=== PATIENT | female | born 1950 | race Caucasian/White ===

== ENCOUNTER 2018-02-11 17:20 | Emergency (ER) | payer OTHER ==
[~2018-02-11] VITALS: Ht 177.8 cm; Wt 111.1 kg
[~2018-02-11 17:20] MED LIST: ALBIPROI INH; ALBU.083IS IH; ALBU.083IS INH; ALBU8HFA2 INH; ALBU90I INH; ALBU90OI INH; ALBU90OI6 INH; ALBUIS IH; AZIT250 PO; BUDE6HFA INH; CEPH500 PO; CLOT1TC TOP; CYCL10 PO; ENOX40I SC; FLUSAL1005 IH; HYDACE10B PO; HYDACE5 PO; HYDCHL12.5 PO; IPRAIS NEB; Klor-Con 1010 MEQ PO; LISI5 PO; LORA10ER PO; METF500 PO; METHI10 PO; MONT10T PO; MULVITA PO; NAPR500 PO; Norco 5-325 Ta1 EACH PO; OMEP40CA12 PO; OXYACE5T PO; OXYB5 PO; PANT40 PO; PRED20 PO; PROVASTATIN PO; Prilosec Otc20 MG PO; Q VAR; RANI150 PO; RXHYD5325 PO; SULTRIDS PO; THEO300ERA PO; THEO300ERC PO; TIOT18 IH; TOBR.3OPSO OP; TOCO400 PO; TRAM50 PO; VITAMIN D3 PO; Ventolin Soln3 ML INH
== END 2018-02-11 18:25 | disposition home or self-care (01) ==
LOC: ER 17:20
DX: S51.011A Laceration without foreign body of right elbow, initial encounter (principal); W18.09XA Striking against other object with subsequent fall, initial encounter; Z88.0 Allergy status to penicillin; Z91.048 Other nonmedicinal substance allergy status; Z79.899 Other long term (current) drug therapy; J44.9 Chronic obstructive pulmonary disease, unspecified; E11.9 Type 2 diabetes mellitus without complications
CPT/HCPCS: 90471; 90714; 99283-25

== ENCOUNTER 2019-07-06 08:02 | Day surgery (SDC) | payer OTHER ==
[~2019-07-06] VITALS: Ht 177.8 cm; Wt 123.5 kg
[2019-07-06] MEDS ORDERED: NAPR220 (08:47)
--- NOTE | 2019-07-06 08:52 | NUR ---
07/06/19 0852 Lucero Chambers FOR BACK PAIN
--- NOTE | 2019-07-06 10:10 | NUR ---
07/06/19 1010 Lucero Chambers PT. RIGHT AFTER INJECTION C/O PROCEDURE BEING PAINFUL RATING PAIN A "10". AFTER LAYING ON SIDE FOR 10MIN PER DR. GRAJEDA VERBALIZATION, PT. SAT UP ON SIDE OF BED & PAIN WAS IMPROVED TO A "6". PT. DENIED ANY NUMBNESS OR TINGLING POST PROCEDURE. UPON WALKING OUT TO CAR PT. VERBALIZED HER HIP DIDN'T HURT ANYMORE. PT. STEADY ON FEET.
== END 2019-07-06 09:35 | disposition home or self-care (01) ==
LOC: ORSCSDS 08:02
PROVIDERS: Anesthesiology
PROC: 3E0R33Z Introduction of Anti-inflammatory into Spinal Canal, Percutaneous Approach (ICD-10-PCS; principal; 2019-07-06 09:15)
DX: M51.16 Intervertebral disc disorders with radiculopathy, lumbar region (principal); G47.33 Obstructive sleep apnea (adult) (pediatric); J45.909 Unspecified asthma, uncomplicated; E05.90 Thyrotoxicosis, unspecified without thyrotoxic crisis or storm; E66.01 Morbid (severe) obesity due to excess calories; Z68.39 Body mass index [BMI] 39.0-39.9, adult; Z79.899 Other long term (current) drug therapy
CPT/HCPCS: J0330; J1040

== ENCOUNTER → 2020-03-10 | Outpatient (CLI) | payer OTHER ==
[~2020-03-10] MED LIST changes: +NAPR220
== END | disposition home or self-care (01) ==
LOC: LAB SHORT 18:16 → LAB 18:16
DX: N39.0 Urinary tract infection, site not specified (principal)
CPT/HCPCS: 87077; 87086; 87186

== ENCOUNTER → 2020-05-15 | Outpatient (CLI) | payer OTHER ==
[~2020-05-15] MED LIST changes: +ASPI325 PO; +Hair, Skin & N1 EACH PO; -LISI5 PO; +Prinivil10 MG PO; +SYMBICORT 16010.2 GM INH; +TIOT18 INH
== END | disposition home or self-care (01) ==
LOC: LAB 13:31 → LAB SHORT 13:31
DX: N39.0 Urinary tract infection, site not specified (principal)
CPT/HCPCS: 87077; 87086; 87186

== ENCOUNTER → 2020-05-20 | Outpatient (CLI) | payer OTHER ==
[~2020-05-20] MED LIST changes: -ASPI325 PO; -Hair, Skin & N1 EACH PO; +LISI5 PO; -Prinivil10 MG PO; -SYMBICORT 16010.2 GM INH; -TIOT18 INH
== END ==
LOC: LAB SHORT 15:20
DX: R30.9 Painful micturition, unspecified (principal)
CPT/HCPCS: 87077; 87086; 87186

== ENCOUNTER 2020-09-08 10:41 | Observation (INO) | payer OTHER ==
[~2020-09-08] VITALS: Ht 175.3 cm; Wt 124.0 kg
[~2020-09-08 10:41] MED LIST changes: -LISI5 PO; +Prinivil10 MG PO; +TIOT18 INH
[2020-09-08 11:29] LABS: BASOPHILS ABSOLUTE AUTO 0.07 K/mm3 (0.00-0.23); BASOPHILS PERCENT AUTO 1 % (0-2); EOSINOPHILS ABSOLUTE AUTO 0.33 K/mm3 (0.00-0.68); EOSINOPHILS PERCENT AUTO 3 % (0-6); Hemoglobin 13.4 g/dL (11.5-16.0); IMMATURE GRAN ABSOLUTE AUTO 0.26 K/mm3 (0.00-0.10); IMMATURE GRAN PERCENT AUTO 2 % (0-1); LYMPHOCYTES ABSOLUTE AUTO 1.68 K/mm3 (0.84-5.20); LYMPHOCYTES PERCENT AUTO 14 % (21-46); MONOCYTES ABSOLUTE AUTO 0.85 K/mm3 (0.16-1.47); MONOCYTES PERCENT AUTO 7 % (4-13); Mean Corpuscular HGB 30.4 pg (26.0-34.0); Mean Corpuscular HGB Conc 32.7 g/dL (31.5-36.5); Mean Corpuscular Volume 93 fL (80-100); Mean Platelet Volume 9.4 fL (9.1-12.4); NEUTROPHILS ABSOLUTE AUTO 8.62 K/mm3 (1.96-9.15); NEUTROPHILS PERCENT AUTO 73 % (41-73); Platelet Count 274 K/mm3 (150-400); RDW Coefficient Variation 14.1 % (11.7-14.2); RDW Standard Deviation 48.7 fL (35.1-46.3); Red Blood Cell Count 4.41 M/mm3 (3.80-5.20); White Blood Cell Count 11.81 K/mm3 (4.00-11.30)
[2020-09-08 11:53] LABS: Alanine Aminotransfer (ALT/SGP 26 U/L (12-78); Albumin, Blood 3.2 g/dL (3.4-5.0); Albumin/Globulin Ratio 0.8 (0.8-1.8); Alk Phos 142 U/L (50-136); Anion Gap 5 mmol/L (6-16); Aspartate Aminotrans (AST/SGOT 17 U/L (12-37); Bilirubin, Total 0.4 mg/dL (0.1-1.0); Blood Urea Nitrogen 16 mg/dL (8-24); Bun/Creatinine Ratio 27.4 (12.0-20.0); CO2, Blood 27 mmol/L (21-32); Calcium, Blood 9.4 mg/dL (8.5-10.1); Chloride, Blood 108 mmol/L (98-108); Creatinine, Blood 0.58 mg/dL (0.40-1.00); Globulin, Blood 4.2 g/dL (2.2-4.0); Glomerular Filtration Rate >60 (60-); Glucose, Blood 110 mg/dL (70-99); Potassium, Blood 3.9 mmol/L (3.5-5.5); Sodium, Blood 140 mmol/L (136-145); Total Protein, Blood 7.4 g/dL (6.4-8.2); Troponin I <0.015 ng/mL (0.000-0.040)
[2020-09-08] MEDS ORDERED: ASPI325 PO (13:21)
[2020-09-08] MEDS ORDERED: SYMBICORT 16010.2 GM INH (13:39)
[2020-09-08] MEDS ORDERED: Hair, Skin & N1 EACH PO (13:49)
--- NOTE | 2020-09-08 15:29 | NUR ---
PT ARRIVED TO THE MEDICAL FLOOR FROM THE ER VIA WHEELCHAIR A/OX3, PT DENIED ANY C/P ON ARRIVAL TO THE ROOM. THE PT IS UP IND. THE PT WAS ORIENTED TO THE ROOM LAYOUT AND CALL SYSTEM. CALL LIGHT IN REACH
--- NOTE | 2020-09-08 17:44 | NUR ---
PT IS A/OX4, PLEASANT AND COOPERATIVE, THE PT IS UP WITH MINIMAL ASSIST. THE PT DENIES ANY C/P OR ANY OTHER PAIN AT THIS TIME. THE PT DENIES N/V OR SOB. THE RESTING PORTION OF A STRESS TEST WAS STARTED TODAY. AN ECHO CARDIOGRAM WAS DONE TODAY. TELE IS APPLIED, WILL CONTINUE TO MONITOR AND ASSESS FOR CHANGES
--- NOTE | 2020-09-08 19:49 | NUR ---
Echocardiogram completed.
--- NOTE | 2020-09-09 06:33 | NUR ---
SHIFT SUMMARY PT IS A 69 Y/O FEMALE, ADMITTED FOR [facility]. SHE IS A&O X 4, SBA IN THE ROOM. NO C/O CHEST PAIN, NAUSEA OR SOB, THOUGH PT DID REPORT CHRONIC BACK PAIN. TELE SHOWED NSR IN THE 70S. VITAL SIGNS STABLE. PT HAS BEEN NPO SINCE MIDNIGHT IN PREP FOR 2ND HALF OF STRESS TEST TODAY. NO ACUTE CHANGES IN PT CONDITION NOTED DURING THE NIGHT. WILL CONTINUE TO MONITOR AND TREAT PER EMAR UNTIL HAND OFF TO DAY SHIFT RN.
[2020-09-09] MEDS ORDERED: ASPI81CH PO (11:38)
--- NOTE | 2020-09-09 12:48 | NUR ---
DISCHARGE ORDERS REVIEWED WITH PATIENT. ALL QUESTIONS ANSWERED. IV AND TELE REMOVED. PATIENT IS IN ROOM GETTING READY TO DISCHARGE HOME.
--- NOTE | 2020-09-09 13:31 | NUR ---
PATIENT DISCHARGED HOME AT 1305 WITH INFORMATION MANAGEMENT SPECIALIST ESCORT OUT OF HOSPITAL.
== END 2020-09-09 13:08 | disposition home or self-care (01) ==
LOC: ER 10:41 → MEDS 10:42
PROVIDERS: Physician Assistant; ADMIT Hospitalist
DX: R07.89 Other chest pain (principal); R68.84 Jaw pain; F43.10 Post-traumatic stress disorder, unspecified; J44.9 Chronic obstructive pulmonary disease, unspecified; E11.51 Type 2 diabetes mellitus with diabetic peripheral angiopathy without gangrene; I10 Essential (primary) hypertension; G47.33 Obstructive sleep apnea (adult) (pediatric); K75.81 Nonalcoholic steatohepatitis (NASH); E03.9 Hypothyroidism, unspecified; K21.9 Gastro-esophageal reflux disease without esophagitis; K58.9 Irritable bowel syndrome, unspecified; N32.81 Overactive bladder; M85.80 Other specified disorders of bone density and structure, unspecified site; I45.10 Unspecified right bundle-branch block; K44.9 Diaphragmatic hernia without obstruction or gangrene; Z88.0 Allergy status to penicillin; Z91.048 Other nonmedicinal substance allergy status; Z96.653 Presence of artificial knee joint, bilateral
CPT/HCPCS: 36415; 71046; 78452; 80053; 82947; 83880; 84484; 85025; 93005; 93010; 93017; 93306; 94640; 94664; 94760; 96372; 99285-25; A9270; A9500; G0378; J0706; J1650; J2785

== ENCOUNTER → 2020-10-08 | Outpatient (CLI) | payer OTHER ==
[~2020-10-08] MED LIST changes: +ASPI325 PO; +ASPI81CH PO; +Hair, Skin & N1 EACH PO; +SYMBICORT 16010.2 GM INH
== END | disposition home or self-care (01) ==
LOC: LAB SHORT 19:47 → LAB 19:47
DX: N39.0 Urinary tract infection, site not specified (principal)
CPT/HCPCS: 87077; 87086; 87186

== ENCOUNTER → 2020-11-04 | Outpatient (CLI) | payer OTHER | END | disposition home or self-care (01) | LOC: LAB SHORT 10:15 → LAB 10:15 | DX: R30.9 Painful micturition, unspecified (principal) | CPT/HCPCS: 87086 ==

== ENCOUNTER 2021-05-27 04:14 | Emergency (ER) | payer MEDICARE, OTHER ==
[~2021-05-27] VITALS: Ht 175.3 cm; Wt 120.2 kg
[~2021-05-27 04:14] MED LIST changes: +Prednisone20 MG PO
[2021-05-30] MEDS ORDERED: CEPH500 PO (18:22)
== END 2021-05-27 06:40 | disposition home or self-care (01) ==
LOC: ER 04:14
DX: R11.2 Nausea with vomiting, unspecified (principal); J44.9 Chronic obstructive pulmonary disease, unspecified; E11.9 Type 2 diabetes mellitus without complications; E03.9 Hypothyroidism, unspecified; K21.9 Gastro-esophageal reflux disease without esophagitis; I10 Essential (primary) hypertension; Z88.0 Allergy status to penicillin; Z91.048 Other nonmedicinal substance allergy status; Z79.899 Other long term (current) drug therapy; Z79.82 Long term (current) use of aspirin
CPT/HCPCS: 99283; A9270

== ENCOUNTER 2021-09-13 20:46 | Emergency (ER) | payer MEDICARE, OTHER ==
[~2021-09-13] VITALS: Ht 175.3 cm; Wt 106.6 kg
== END 2021-09-13 21:24 | disposition home or self-care (01) ==
LOC: ER 20:46
DX: H11.32 Conjunctival hemorrhage, left eye (principal); J44.9 Chronic obstructive pulmonary disease, unspecified; E11.9 Type 2 diabetes mellitus without complications; Z88.0 Allergy status to penicillin; Z91.048 Other nonmedicinal substance allergy status; Z79.899 Other long term (current) drug therapy
CPT/HCPCS: 99282

== ENCOUNTER → 2021-10-05 | Outpatient (CLI) | payer MEDICARE, OTHER ==
[2021-10-06 09:48] LABS: Stool Occult Bld Immuno 1 Negative (NEGATIVE)
== END | disposition home or self-care (01) ==
LOC: LAB SHORT 14:00 → LAB 14:00
PROVIDERS: Family Medicine
DX: Z12.11 Encounter for screening for malignant neoplasm of colon (principal)
CPT/HCPCS: G0328

== ENCOUNTER 2022-05-09 07:53 | Emergency (ER) | payer MEDICARE, OTHER ==
[~2022-05-09] VITALS: Ht 180.3 cm; Wt 113.4 kg
[2022-05-09 09:04] LABS: BASOPHILS ABSOLUTE AUTO 0.07 K/mm3 (0.00-0.23); BASOPHILS PERCENT AUTO 1 % (0-2); EOSINOPHILS PERCENT AUTO 2 % (0-6); Hematocrit 43.3 % (33.0-51.0); Hemoglobin 14.3 g/dL (11.5-16.0); IMMATURE GRAN ABSOLUTE AUTO 0.21 K/mm3 (0.00-0.10); IMMATURE GRAN PERCENT AUTO 2 % (0-1); LYMPHOCYTES ABSOLUTE AUTO 1.87 K/mm3 (0.84-5.20); LYMPHOCYTES PERCENT AUTO 18 % (21-46); MONOCYTES ABSOLUTE AUTO 0.92 K/mm3 (0.16-1.47); MONOCYTES PERCENT AUTO 9 % (4-13); Mean Corpuscular HGB 31.4 pg (26.0-34.0); Mean Corpuscular Volume 95 fL (80-100); Mean Platelet Volume 9.6 fL (9.1-12.4); NEUTROPHILS ABSOLUTE AUTO 7.23 K/mm3 (1.96-9.15); NEUTROPHILS PERCENT AUTO 69 % (41-73); Platelet Count 223 K/mm3 (150-400); RDW Coefficient Variation 13.4 % (11.7-14.2); RDW Standard Deviation 47.6 fL (35.1-46.3); Red Blood Cell Count 4.55 M/mm3 (3.80-5.20)
[2022-05-09 09:23] LABS: Albumin, Blood 3.3 g/dL (3.4-5.0); Albumin/Globulin Ratio 0.8 (0.8-1.8); Bilirubin, Total 0.8 mg/dL (0.1-1.0); Bun/Creatinine Ratio 32.7 (12.0-20.0); Calcium, Blood 9.1 mg/dL (8.5-10.1); Creatinine, Blood 0.61 mg/dL (0.40-1.00); Globulin, Blood 4.3 g/dL (2.2-4.0); Potassium, Blood 4.2 mmol/L (3.5-5.5); Total Protein, Blood 7.6 g/dL (6.4-8.2)
[2022-05-09 09:40] LABS: Influenza A, PCR NEGATIVE (NEGATIVE); Influenza B, PCR NEGATIVE (NEGATIVE); Resp Syncytial Virus, PCR NEGATIVE (NEGATIVE); SARS-Cov-2 (COVID-19) PCR, MMC NEGATIVE (NEGATIVE)
[2022-05-09 10:57] LABS: Source, Urine Clean Catch
[2022-05-09 11:12] LABS: Bilirubin, Urine Neg (Neg); Blood, Urine Neg (Neg); Glucose Qualitative, Urine Neg (Neg); Ketones, Urine Neg (Neg); Leukocyte Esterase, Urine Neg (Neg); Nitrite, Urine Pos (Neg); Protein, Urine Neg (Neg); Specific Gravity, Urine 1.015 (1.003-1.022); Urobilinogen, Urine NORM (Normal)
[2022-05-09 11:27] LABS: Appearance, Urine Cloudy (Clear); Bacteria Many /hpf; Color, Urine Yellow (P-Yellow); Red Blood Cells, Urine 0-2 /hpf (0-2); Squamous Epithelial Cells Few /hpf (Few); White Blood Cells, Urine 0-2 /hpf (0-5)
[2022-05-09] MEDS ORDERED: ONDA4ODT MM (11:35)
[2022-05-09] MEDS ORDERED: Bactrim Ds Tab1 EACH PO (11:35)
== END 2022-05-09 11:42 | disposition home or self-care (01) ==
LOC: ER 07:53
PROVIDERS: Physician Assistant
DX: N39.0 Urinary tract infection, site not specified (principal); J06.9 Acute upper respiratory infection, unspecified; J44.9 Chronic obstructive pulmonary disease, unspecified; E11.51 Type 2 diabetes mellitus with diabetic peripheral angiopathy without gangrene; K21.9 Gastro-esophageal reflux disease without esophagitis; I10 Essential (primary) hypertension; E05.00 Thyrotoxicosis with diffuse goiter without thyrotoxic crisis or storm; Z20.822 Contact with and (suspected) exposure to COVID-19; Z88.0 Allergy status to penicillin; Z91.048 Other nonmedicinal substance allergy status; Z88.8 Allergy status to other drugs, medicaments and biological substances; Z79.899 Other long term (current) drug therapy; Z79.82 Long term (current) use of aspirin
CPT/HCPCS: 0241U; 36415; 71046; 80053; 81001; 83735; 85025; 87077; 87086; 87186; 94640; 94664; J2405; J7030

== ENCOUNTER 2022-06-23 09:34 | Emergency (ER) | payer OTHER ==
[~2022-06-23] VITALS: Ht 177.8 cm; Wt 111.1 kg
[~2022-06-23 09:34] MED LIST changes: +Bactrim Ds Tab1 EACH PO; +ONDA4ODT MM
[2022-06-23 10:07] LABS: BASOPHILS ABSOLUTE AUTO 0.04 K/mm3 (0.00-0.23); BASOPHILS PERCENT AUTO 0 % (0-2); EOSINOPHILS ABSOLUTE AUTO 0.07 K/mm3 (0.00-0.68); EOSINOPHILS PERCENT AUTO 1 % (0-6); IMMATURE GRAN ABSOLUTE AUTO 0.21 K/mm3 (0.00-0.10); IMMATURE GRAN PERCENT AUTO 1 % (0-1); LYMPHOCYTES ABSOLUTE AUTO 1.21 K/mm3 (0.84-5.20); LYMPHOCYTES PERCENT AUTO 8 % (21-46); MONOCYTES ABSOLUTE AUTO 1.03 K/mm3 (0.16-1.47); MONOCYTES PERCENT AUTO 7 % (4-13); Mean Corpuscular HGB 31.3 pg (26.0-34.0); Mean Corpuscular HGB Conc 32.6 g/dL (31.5-36.5); Mean Corpuscular Volume 96 fL (80-100); Mean Platelet Volume 9.4 fL (9.1-12.4); NEUTROPHILS ABSOLUTE AUTO 12.22 K/mm3 (1.96-9.15); NEUTROPHILS PERCENT AUTO 83 % (41-73); Platelet Count 169 K/mm3 (150-400); RDW Coefficient Variation 14.2 % (11.7-14.2); RDW Standard Deviation 50.3 fL (35.1-46.3); Red Blood Cell Count 4.47 M/mm3 (3.80-5.20); White Blood Cell Count 14.78 K/mm3 (4.00-11.30)
[2022-06-23 10:19] LABS: Base Excess Venous -0.3 mmol/L; PCO2 Venous 54.1 mmHg (38-42); pH Blood Venous 7.29 (7.34-7.37)
[2022-06-23 10:27] LABS: Albumin, Blood 2.9 g/dL (3.4-5.0); Albumin/Globulin Ratio 0.7 (0.8-1.8); Bilirubin, Total 0.7 mg/dL (0.1-1.0); Calcium, Blood 8.7 mg/dL (8.5-10.1); Creatinine, Blood 0.65 mg/dL (0.40-1.00); Globulin, Blood 4.2 g/dL (2.2-4.0); Potassium, Blood 3.5 mmol/L (3.5-5.5); Total Protein, Blood 7.1 g/dL (6.4-8.2)
[2022-06-23 11:09] LABS: Influenza A, PCR NEGATIVE (NEGATIVE); Influenza B, PCR NEGATIVE (NEGATIVE); Resp Syncytial Virus, PCR NEGATIVE (NEGATIVE); SARS-Cov-2 (COVID-19) PCR, MMC NEGATIVE (NEGATIVE)
[2022-06-23] MEDS ORDERED: AZIT250 PO (12:19)
[2022-06-23] MEDS ORDERED: PRED20 PO (12:19)
[2022-06-23 12:36] VITALS: BP 112/79
== END 2022-06-23 12:38 | disposition home or self-care (01) ==
LOC: ER 09:34
PROVIDERS: Physician Assistant
DX: J44.1 Chronic obstructive pulmonary disease with (acute) exacerbation (principal); J18.9 Pneumonia, unspecified organism; E11.9 Type 2 diabetes mellitus without complications; I10 Essential (primary) hypertension; Z91.048 Other nonmedicinal substance allergy status; Z20.822 Contact with and (suspected) exposure to COVID-19; Z88.0 Allergy status to penicillin; Z79.82 Long term (current) use of aspirin; Z79.51 Long term (current) use of inhaled steroids; Z79.899 Other long term (current) drug therapy
CPT/HCPCS: 0241U; 71045; 80053; 82803; 83880; 84484; 85025; 93005; 93010; 94644; 94664; J2930

== ENCOUNTER 2022-06-27 20:10 | Inpatient (IN) | payer OTHER ==
[~2022-06-27] VITALS: Ht 175.3 cm; Wt 112.7 kg
[2022-06-27 21:00] LABS: Hematocrit 38.7 % (33.0-51.0); Hemoglobin 12.7 g/dL (11.5-16.0); Mean Corpuscular HGB 31.1 pg (26.0-34.0); Mean Corpuscular HGB Conc 32.8 g/dL (31.5-36.5); Mean Corpuscular Volume 95 fL (80-100); Mean Platelet Volume 9.6 fL (9.1-12.4); NRBC ABSOLUTE 0.04 K/mm3 (0.00-0.02); NRBC Auto 0.2 /100 WBC (0.0-0.2); Platelet Count 211 K/mm3 (150-400); RDW Coefficient Variation 14.2 % (11.7-14.2); RDW Standard Deviation 49.1 fL (35.1-46.3); Red Blood Cell Count 4.08 M/mm3 (3.80-5.20); White Blood Cell Count 22.47 K/mm3 (4.00-11.30)
[2022-06-27 21:18] LABS: Albumin, Blood 2.5 g/dL (3.4-5.0); Albumin/Globulin Ratio 0.6 (0.8-1.8); Bilirubin, Total 0.4 mg/dL (0.1-1.0); Bun/Creatinine Ratio 36.4 (12.0-20.0); Calcium, Blood 8.5 mg/dL (8.5-10.1); Creatinine, Blood 0.58 mg/dL (0.40-1.00); Potassium, Blood 3.9 mmol/L (3.5-5.5); Total Protein, Blood 6.5 g/dL (6.4-8.2)
[2022-06-27 21:21] LABS: BAND PERCENT MAN 1 % (0-8); BASOPHILS PERCENT MAN 0 % (0-2); EOSINOPHILS PERCENT MAN 0 % (0-6); LYMPHOCYTES ABSOLUTE MAN 1.34 K/mm3 (0.84-5.20); LYMPHOCYTES PERCENT MAN 6 % (21-46); METAMYELOCYTE ABSOLUTE MAN 0.44 K/mm3 (0.00-0.00); METAMYELOCYTE PERCENT MAN 2 % (0-0); MONOCYTES ABSOLUTE MAN 0.89 K/mm3 (0.16-1.47); MONOCYTES PERCENT MAN 4 % (4-13); MYELOCYTE ABSOLUTE MAN 1.57 K/mm3 (0.00-0.00); MYELOCYTE PERCENT MAN 7 % (0-0); SEG NEUTROPHILS PERCENT MAN 80 % (41-73); TOTAL CELLS COUNTED 100
[2022-06-28 00:55] VITALS: BP 143/74
[2022-06-28 01:35] LABS: International Normalized Ratio 1.04; Prothrombin Time Results 10.9 Sec (9.7-11.5)
[2022-06-28 01:36] LABS: PCO2 Venous 33.2 mmHg (38-42); pH Blood Venous 7.45 (7.34-7.37)
[2022-06-28 01:37] LABS: Bicarbonate Venous 24.2 mmol/L (24.0-30.0)
[2022-06-28 03:43] VITALS: BP 135/76
--- NOTE | 2022-06-28 05:14 | NUR ---
TRANSFER OF CARE NOTE/SHIFT SUMMARY RECEIVED REPORT FROM CUSTOMER SUPPLY COORDINATOR SHANI BUCK SHORTLY ARRIVED TO U ~0045 THIS AM. PT WAS ABLE TO TRANSFER FROM [facility] TO BED VIA SBA. PT IS AFEBRILE WELL A/Ox4 AND COOPERATIVE WITH CARE MAINTAINED SPO2 >90% ON 1L VIA NC. SOB WELL INCREASED RR NOTED WITH ABULATION, BUT QUICKLY RECOVERED. CARDIAC SOTOMAYOR, PT WAS IN SR-ST W/PVC'S 70-100'S WITH NO C/O CP OR PRESSURE. BP WAS STABLE IN THE 120-130'S. BS PRESENT WITH NOT ABD TENDERNSS REPORTED. BED IN LOWEST POSITION AND CALL LIGHT WITHIN REACH. LOUISA JOHANSEN UPON ARRIVAL TO PCU. SHIFT SUMMARY NO ACUTE CHANGES FROM TRANSFER OF CARE NOTE. PT REMAINS A/Ox4 AND COOPERATIVE WITH CARE PROVIDED BY MEMBERS OF STAFF. ABLE TO ANSWER QUESTIONS APPROPRIATELY AND MAKE HER NEEDS KNOWN. PT REMAIN A/Ox4 AND COOPERATIVE WITH CARE PROVIDED BY STAFF. SEE ABOVE NOTE FOR MORE DETAILS. NO NEW ORDERS AT THIS TIME, WILL REPORT TO ONCOMING RN. LOUISA JOHANSEN OF THIS NOTE.
[2022-06-28 07:32] VITALS: BP 128/80
[2022-06-28 09:37] LABS: Hematocrit 40.6 % (33.0-51.0); Hemoglobin 13.6 g/dL (11.5-16.0); Mean Corpuscular HGB 30.9 pg (26.0-34.0); Mean Corpuscular HGB Conc 33.5 g/dL (31.5-36.5); Mean Corpuscular Volume 92 fL (80-100); Mean Platelet Volume 9.2 fL (9.1-12.4); Platelet Count 239 K/mm3 (150-400); RDW Coefficient Variation 13.8 % (11.7-14.2); RDW Standard Deviation 47.5 fL (35.1-46.3); White Blood Cell Count 33.88 K/mm3 (4.00-11.30)
--- NOTE | 2022-06-28 09:59 | NUR ---
DR. GONZALES CAME TO BEDSIDE AND EVALUATED THE PT. SHE WAS CHANGED TO MED NO TELE, STARTED ON A CARDIAC DIET, AND THE PT WAS STARTED ON Q4 NYASTAIN SS Q4 FOR TRUSH. DR. GONZALES WANTS TO KEEP THE PAIENT FOR 1-2 MORE DAYS INPATIENT.
[2022-06-28 10:01] LABS: Albumin, Blood 2.7 g/dL (3.4-5.0); Albumin/Globulin Ratio 0.6 (0.8-1.8); Bilirubin, Total 0.4 mg/dL (0.1-1.0); Bun/Creatinine Ratio 32.4 (12.0-20.0); Creatinine, Blood 0.59 mg/dL (0.40-1.00); Globulin, Blood 4.5 g/dL (2.2-4.0); Potassium, Blood 3.5 mmol/L (3.5-5.5); Total Protein, Blood 7.2 g/dL (6.4-8.2)
[2022-06-28 10:07] LABS: BAND PERCENT MAN 4 % (0-8); BASOPHILS PERCENT MAN 0 % (0-2); EOSINOPHILS PERCENT MAN 0 % (0-6); LYMPHOCYTES ABSOLUTE MAN 0.33 K/mm3 (0.84-5.20); LYMPHOCYTES PERCENT MAN 1 % (21-46); METAMYELOCYTE ABSOLUTE MAN 0.33 K/mm3 (0.00-0.00); METAMYELOCYTE PERCENT MAN 1 % (0-0); MONOCYTES ABSOLUTE MAN 0.33 K/mm3 (0.16-1.47); MONOCYTES PERCENT MAN 1 % (4-13); NEUTROPHILS ABSOLUTE MAN 32.86 K/mm3 (1.96-9.15); SEG NEUTROPHILS PERCENT MAN 93 % (41-73); TOTAL CELLS COUNTED 100
[2022-06-28 10:14] LABS: Source, Urine Clean Catch
[2022-06-28 10:17] LABS: CPK Creatine Kinase 149 U/L (26-193)
[2022-06-28 10:18] LABS: Appearance, Urine Clear (Clear); Bilirubin, Urine Neg (Neg); Blood, Urine Neg (Neg); Color, Urine Yellow (P-Yellow); Glucose Qualitative, Urine 4+ (Neg); Ketones, Urine Neg (Neg); Leukocyte Esterase, Urine Neg (Neg); Nitrite, Urine Neg (Neg); Protein, Urine 2+ (Neg); Specific Gravity, Urine 1.015 (1.003-1.022); Urobilinogen, Urine NORM (Normal)
[2022-06-28 10:40] LABS: Bacteria Not Seen /hpf; Red Blood Cells, Urine Not Seen /hpf (0-2); Squamous Epithelial Cells Rare /hpf (Few); White Blood Cells, Urine Not Seen /hpf (0-5)
[2022-06-28 15:37] VITALS: BP 108/76
--- NOTE | 2022-06-28 16:55 | NUR ---
SHIFT SUMMARY PT IS A&OX4, CALLS APPROPRIATELY AND MAKES NEEDS KNOWN. SHE IS A SBA BUT HAS BE[place] GETTING [place] [facility] [place]ENC[place]. SHE IS NOW MEDICAL STATUS WITH NO TELE AND DENIES ANY ANGINA OR CHEST PRESSURE. AT THE START OF SHIFT THE PT WAS ON 1L NC AND HAS BEEN TITRATED OFF TO ROOM AIR. HER SP02 RANGES FROM 88%-95%. WITH ACTIVITY SHE WILL DESATURATE FOR A FEW SECOND. PT DENIES SOB. SHE HAD A HEADACHE THIS AM AND WAS GIVEN 650 MG OF TYLENOL WHICH RESOLVED THE COMPLAINT. A SPUTUM SAMPLE AND UA WAS OBTAINED. A DENTAL HYGIENIST CAME AND EVALUATED THE PT AND SHE DISCOVERED THRUSH. DR. GONZALES STARTED THE PT ON Q4 NYSTATIN SS. PT WAS ASSIGNED TO ROOM 336. BELONGINGS PACKED UP AND SENT WITH THE PT. CARE HAND OFF TO JAMES Cabrera RN. SEE NOTES FOR ANY UPDATES.
[2022-06-28 17:10] LABS: CPK Creatine Kinase 107 U/L (26-193)
--- NOTE | 2022-06-28 18:29 | NUR ---
PT ARRIVED TO MEDICAL UNIT AT THIS TIME
[2022-06-28 20:22] VITALS: BP 128/64
[2022-06-29 04:43] VITALS: BP 125/79
--- NOTE | 2022-06-29 05:53 | NUR ---
SHIFT SUMMARY PT LAYING IN BED VAISHALI BEDSIDE REPORT-PT RECENTLY TRANSFERRED TO FLOOR FROM PCU- PT TOOK SCHEDULED MEDICATIONS WITHOUT C/O - PT REQUESTED MEDICATION FOR SLEEP AND COUGH- CALL TO DR. VACA- NEW ORDER FOR MELATONIN- PT ASLEEP ONCE COUGH SYRUP WAS SENT UP- PT SLEPT FOR THE NIGHT- 544 STARTED ANTIBIOTICS- PT REFUSED COUGH SYRUP AT THIS TIME- BED LOW POSITION, CALL LIGHT WITHIN REACH
[2022-06-29 07:36] VITALS: BP 123/69
[2022-06-29 15:17] VITALS: BP 117/52
--- NOTE | 2022-06-29 16:40 | NUR ---
PATIENT IS ALERT AND ORIENTED AND COOPERATIVE WITH CARE. PATIENT DID HAVE AN EPISODE WHERE SHE WAS CONFUSED AND HAD AUDITTORY HALLUCINATIONS. PATIENT HAS BEEN USING THE INSCENTIVE SPIROMETER THIS SHIFT. LS CLEAR, NO WHEEZES NOTED. BREATHING TREATMENTS SCHEDULED. PATIENT IS INDEPENDENT IN HER ROOM. WILL CONTINUE TO MONITOR
[2022-06-29 20:39] VITALS: BP 130/79
[2022-06-30 03:35] VITALS: BP 105/78
[2022-06-30 07:22] LABS: Hematocrit 37.2 % (33.0-51.0); Hemoglobin 12.5 g/dL (11.5-16.0); Mean Corpuscular HGB 31.3 pg (26.0-34.0); Mean Corpuscular HGB Conc 33.6 g/dL (31.5-36.5); Mean Corpuscular Volume 93 fL (80-100); Mean Platelet Volume 9.7 fL (9.1-12.4); Platelet Count 297 K/mm3 (150-400); RDW Coefficient Variation 13.8 % (11.7-14.2); RDW Standard Deviation 47.7 fL (35.1-46.3); White Blood Cell Count 24.15 K/mm3 (4.00-11.30)
[2022-06-30 07:41] VITALS: BP 102/73
[2022-06-30 07:41] LABS: Albumin, Blood 2.2 g/dL (3.4-5.0); Albumin/Globulin Ratio 0.5 (0.8-1.8); Bilirubin, Total 0.2 mg/dL (0.1-1.0); Calcium, Blood 9.4 mg/dL (8.5-10.1); Creatinine, Blood 0.63 mg/dL (0.40-1.00); Globulin, Blood 4.3 g/dL (2.2-4.0); Total Protein, Blood 6.5 g/dL (6.4-8.2)
[2022-06-30 09:02] LABS: BAND PERCENT MAN 5 % (0-8); BASOPHILS PERCENT MAN 0 % (0-2); EOSINOPHILS PERCENT MAN 0 % (0-6); LYMPHOCYTES ABSOLUTE MAN 0.48 K/mm3 (0.84-5.20); LYMPHOCYTES PERCENT MAN 2 % (21-46); MONOCYTES ABSOLUTE MAN 0.24 K/mm3 (0.16-1.47); MONOCYTES PERCENT MAN 1 % (4-13); MYELOCYTE ABSOLUTE MAN 0.24 K/mm3 (0.00-0.00); MYELOCYTE PERCENT MAN 1 % (0-0); NEUTROPHILS ABSOLUTE MAN 23.18 K/mm3 (1.96-9.15); SEG NEUTROPHILS PERCENT MAN 91 % (41-73); TOTAL CELLS COUNTED 100
[2022-06-30 16:11] VITALS: BP 101/66
--- NOTE | 2022-06-30 19:22 | NUR ---
SHIFT SUMMARY A&O X 4. VSS. NO ACUTE CHANGES TODAY. IS ON RA, HAS A HACKING PRODUCTIVE COUGH, PRODUCING PALE GREEN TO YELLOW SPUTUM. IS INDEPENDENT IN THE ROOM FOR RESTROOM USE. DENIES CP, SOB, N/V. IS INDEPENDENT SITTING UP ON EDGE OF BED OR IN CHAIR. MEDICATED WITH PRN TUMS FOR C/O INDIGESTION WITH GOOD RELIEF. PT HAS HX OF GERD. BED IN LOW POSITION, CALL LIGHT WITHIN REACH, CALLS APPROPRIATELY.
[2022-06-30 19:36] VITALS: BP 133/64
[2022-07-01 02:26] VITALS: BP 155/111
[2022-07-01 05:51] LABS: Hematocrit 40.5 % (33.0-51.0); Hemoglobin 13.2 g/dL (11.5-16.0); Mean Corpuscular HGB 30.6 pg (26.0-34.0); Mean Corpuscular HGB Conc 32.6 g/dL (31.5-36.5); Mean Corpuscular Volume 94 fL (80-100); Platelet Count 319 K/mm3 (150-400); RDW Coefficient Variation 13.7 % (11.7-14.2); RDW Standard Deviation 47.3 fL (35.1-46.3); Red Blood Cell Count 4.32 M/mm3 (3.80-5.20); White Blood Cell Count 20.24 K/mm3 (4.00-11.30)
[2022-07-01 06:47] LABS: BAND PERCENT MAN 4 % (0-8); BASOPHILS PERCENT MAN 0 % (0-2); EOSINOPHILS PERCENT MAN 0 % (0-6); LYMPHOCYTES ABSOLUTE MAN 2.63 K/mm3 (0.84-5.20); LYMPHOCYTES PERCENT MAN 13 % (21-46); METAMYELOCYTE PERCENT MAN 1 % (0-0); MONOCYTES ABSOLUTE MAN 1.01 K/mm3 (0.16-1.47); MONOCYTES PERCENT MAN 5 % (4-13); MYELOCYTE PERCENT MAN 3 % (0-0); NEUTROPHILS ABSOLUTE MAN 15.78 K/mm3 (1.96-9.15); SEG NEUTROPHILS PERCENT MAN 74 % (41-73); TOTAL CELLS COUNTED 100
--- NOTE | 2022-07-01 06:49 | NUR ---
HYPERTENSIVE AT TIMES, ANXIOUS AT TIMES, STATED SHE WAS HAVING A PANIC ATTACK WITH AUDITORY HALLUCINATIONS. AROUND 0300, ORDERED ONE TIME ATIVAN PO, SEEMS TO BE EFFECTIVE, CALM AT 0600. 2 IV'S INFILTRATED, REPLACED AT L FOREARM, 22G. ROBITUSSIN GIVEN X 1 FOR DRY COUGHING. INDEPENDENT TO BSC LAST NIGHT.
[2022-07-01 07:32] VITALS: BP 137/87
--- NOTE | 2022-07-01 07:46 | NUR ---
PT IS CONFUSED, PARANOID DELUSIONS AND AUDITORY HALLUCINATIONS, NOT PREVIOUSLY REPORTED BY STAFF. RIGHT LEG IS SWOLLEN AND WARM.
--- NOTE | 2022-07-01 11:39 | NUR ---
PT SON AT BEDSIDE. SON REPORTS PT HAS BEEN HAVING PARANOID DELUSIONS FOR PAST TWO YEARS.
--- NOTE | 2022-07-01 12:33 | NUR ---
BEDSIDE SHIFT REPORT MD AT BEDSIDE. PLS SEE ORDERS. PATIENT WILL STOP STERIODS AND STAY ANOTHER NIGHT FOR OBSERVATION. DISCUSSED CONCERNS OF DELUSIONS. PT AND SON WILL FOLLOW UP WITH PCP.
--- NOTE | 2022-07-01 14:07 | NUR ---
CONTACTED PT PHARMACY FOR MED LIST. PHARMACY STATED PT FILLED 30 DAY MEDICATION LAST TIME IN MAR.
[2022-07-01] MEDS ORDERED: BRINTELLIX10 MG PO (15:42)
--- NOTE | 2022-07-01 15:45 | NUR ---
ATTEMPTED TO RECONCILE MED LIST. PT MORE THAN ONE PHARMACY. MD WANTED TO CONTINUE HOME MEDICATION TRINTELLIX. SPOKE WITH PHARMACY HERE. WE DO NOT HAVE THE MEDICATION OR ANYTHING SIMILAR. WILL SEE IF SOMEONE CAN BRING THE BOTTLE IN.
[2022-07-01 16:15] VITALS: BP 140/65
--- NOTE | 2022-07-01 16:52 | NUR ---
SHIFT SUMMARY PT IS ALERT AND ORIENTED X4. PT HAS BEEN HAVING PARANOID DELUSION INTERMITTENLY THROUGHOUT SHIFT. MD AWARE. INDEPENDENT IN THE ROOM. CALM AND COOPERATIVE. SLIGHT WHEEZING NOTED. IN UPPER LOBES. PT DENIES PAIN. FAMILY WILL FOLLOW UP WITH PCP AND PSYCHIATRIST. UNABLE TO COMPLETE MED REC OR ORDER HOME MEDS. PT UNSURE OF MEDICATION DOSES. ATTEMPTED TO LOCATE MED LIST AT PHARMACY. PT USES MANY PHARMACY.
[2022-07-01 19:58] VITALS: BP 136/77
[2022-07-02 05:29] VITALS: BP 140/67
[2022-07-02 06:44] LABS: Hematocrit 34.2 % (33.0-51.0); Hemoglobin 11.4 g/dL (11.5-16.0); Mean Corpuscular HGB 31.1 pg (26.0-34.0); Mean Corpuscular HGB Conc 33.3 g/dL (31.5-36.5); Mean Corpuscular Volume 93 fL (80-100); Mean Platelet Volume 9.5 fL (9.1-12.4); NRBC ABSOLUTE 0.03 K/mm3 (0.00-0.02); NRBC Auto 0.1 /100 WBC (0.0-0.2); Platelet Count 328 K/mm3 (150-400); RDW Coefficient Variation 13.6 % (11.7-14.2); RDW Standard Deviation 46.8 fL (35.1-46.3); Red Blood Cell Count 3.67 M/mm3 (3.80-5.20); White Blood Cell Count 25.67 K/mm3 (4.00-11.30)
[2022-07-02 07:02] LABS: Albumin, Blood 2.2 g/dL (3.4-5.0); Albumin/Globulin Ratio 0.6 (0.8-1.8); Bilirubin, Total 0.2 mg/dL (0.1-1.0); Bun/Creatinine Ratio 61.8 (12.0-20.0); Calcium, Blood 8.9 mg/dL (8.5-10.1); Creatinine, Blood 0.63 mg/dL (0.40-1.00); Globulin, Blood 3.9 g/dL (2.2-4.0); Potassium, Blood 3.9 mmol/L (3.5-5.5); Total Protein, Blood 6.1 g/dL (6.4-8.2)
[2022-07-02 07:08] LABS: BAND PERCENT MAN 1 % (0-8); BASOPHILS PERCENT MAN 0 % (0-2); EOSINOPHILS PERCENT MAN 0 % (0-6); LYMPHOCYTES ABSOLUTE MAN 2.56 K/mm3 (0.84-5.20); LYMPHOCYTES PERCENT MAN 10 % (21-46); METAMYELOCYTE ABSOLUTE MAN 0.51 K/mm3 (0.00-0.00); METAMYELOCYTE PERCENT MAN 2 % (0-0); MONOCYTES ABSOLUTE MAN 0.25 K/mm3 (0.16-1.47); MONOCYTES PERCENT MAN 1 % (4-13); MYELOCYTE ABSOLUTE MAN 0.51 K/mm3 (0.00-0.00); MYELOCYTE PERCENT MAN 2 % (0-0); NEUTROPHILS ABSOLUTE MAN 21.81 K/mm3 (1.96-9.15); SEG NEUTROPHILS PERCENT MAN 84 % (41-73); TOTAL CELLS COUNTED 100
--- NOTE | 2022-07-02 07:21 | NUR ---
AO, UP AD SHAI, ANXIOUS/PARANOID INTERMITTENTLY. PER REPORT SON CALLED AND TOLD STAFF ABOUT REGULAR PARANOID DELUSIONS. TOLERATING CARES, CALLS APPROPRIATELY, CONTINENT. DRY COUGH THAT IMPROVES WITH ROBITUSSIN. ATARAX GIVEN X1, STATES SHE TAKES 2 ATARAX PILLS AT HOME WHEN SHE FEELS ANXIOUS. NO EVENTS DURING SHIFT.
[2022-07-02 07:22] VITALS: BP 127/87
[2022-07-02] MEDS ORDERED: Norco 5-325 Ta1 EACH PO (13:17)
[2022-07-02] MEDS ORDERED: IPRAT-ALBUT 0.5-3 ML INH (13:18)
[2022-07-02] MEDS ORDERED: CEFD300 PO (13:19)
[2022-07-02] MEDS ORDERED: METF500 PO (13:19)
[2022-07-02] MEDS ORDERED: FURO20 PO (13:20)
--- NOTE | 2022-07-02 15:27 | NUR ---
LATE ENTRY DISCHARGE PT DISCHARGED HOME. WAITING ON FAMILY TO PICK HER UP. ALERT AND ORIENTED X4 DELUSIONAL, INTERMITTENT CONFUSTION. R/A, INDEPENDENT IN THE ROOM. EMPHASIZED THE IMPORTANCE OF FOLLOWING UP WITH PRIMARY CARE AND PHSYCIATRIST ABOUT DELUSIONS. PT SON SAID HE WILL ALSO FOLLOW UP WITH CARE PROVIDERS. EDUCATION PROVIDED ON MEDICATIONS. DISCHARGE INSTRUCTIONS DISSUSED WITH PT. PT STATED THAT HER ROOMATE WILL BE HELPING HER TAKE CARE OF HER.
== END 2022-07-02 16:15 | disposition home or self-care (01) | DRG 871 ==
LOC: ER 20:10 → MEDS 06-28 00:11 → PCU 06-28 00:11 → MEDS 06-28 18:21
PROVIDERS: Emergency Medicine; Internal Medicine; ADMIT Internal Medicine
DX: A41.9 Sepsis, unspecified organism (principal); G93.41 Metabolic encephalopathy; J18.9 Pneumonia, unspecified organism; J96.01 Acute respiratory failure with hypoxia; J44.0 Chronic obstructive pulmonary disease with (acute) lower respiratory infection; J44.1 Chronic obstructive pulmonary disease with (acute) exacerbation; E03.9 Hypothyroidism, unspecified; K75.81 Nonalcoholic steatohepatitis (NASH); F22 Delusional disorders; I10 Essential (primary) hypertension; G47.30 Sleep apnea, unspecified; E11.51 Type 2 diabetes mellitus with diabetic peripheral angiopathy without gangrene; K21.9 Gastro-esophageal reflux disease without esophagitis; F43.10 Post-traumatic stress disorder, unspecified; D72.825 Bandemia; E11.65 Type 2 diabetes mellitus with hyperglycemia; M85.80 Other specified disorders of bone density and structure, unspecified site; N32.81 Overactive bladder; K58.9 Irritable bowel syndrome, unspecified; B95.4 Other streptococcus as the cause of diseases classified elsewhere; E05.00 Thyrotoxicosis with diffuse goiter without thyrotoxic crisis or storm; M19.90 Unspecified osteoarthritis, unspecified site; T38.0X5A Adverse effect of glucocorticoids and synthetic analogues, initial encounter; Z86.14 Personal history of Methicillin resistant Staphylococcus aureus infection; Z79.899 Other long term (current) drug therapy; Z88.0 Allergy status to penicillin; Z88.8 Allergy status to other drugs, medicaments and biological substances; Z91.09 Other allergy status, other than to drugs and biological substances; Z90.710 Acquired absence of both cervix and uterus; Z90.89 Acquired absence of other organs; Z98.890 Other specified postprocedural states; Z79.811 Long term (current) use of aromatase inhibitors; Z79.51 Long term (current) use of inhaled steroids; Z79.82 Long term (current) use of aspirin; Z79.2 Long term (current) use of antibiotics; Z79.52 Long term (current) use of systemic steroids
CPT/HCPCS: 36415; 71045; 80053; 81001; 82550; 82803; 82947; 83880; 84484; 85025; 85610; 87070; 87147; 87205; 93005; 93010; 93971; 94640; 94664; 94760; 96374; 96375; 99285-25; A9270; J0456; J0696; J1650; J1940; J2405; J2930; J7050; J7512

== ENCOUNTER 2022-08-16 17:43 | Inpatient (IN) | payer OTHER ==
[~2022-08-16] VITALS: Ht 175.3 cm; Wt 112.5 kg
[~2022-08-16 17:43] MED LIST changes: +Acetaminophen650 M1 PO; +BRINTELLIX10 MG PO; +CEFD300 PO; +FERSU300 PO; +FURO20 PO; +IPRAT-ALBUT 0.5-3 ML INH; +POTA10T PO
[2022-08-16 18:19] LABS: Albumin, Blood 2.7 g/dL (3.4-5.0); Albumin/Globulin Ratio 0.6 (0.8-1.8); Bilirubin, Total 0.5 mg/dL (0.1-1.0); Bun/Creatinine Ratio 18.1 (12.0-20.0); Calcium, Blood 8.7 mg/dL (8.5-10.1); Creatinine, Blood 0.72 mg/dL (0.40-1.00); Globulin, Blood 4.4 g/dL (2.2-4.0); Potassium, Blood 4.1 mmol/L (3.5-5.5); Total Protein, Blood 7.1 g/dL (6.4-8.2)
[2022-08-16 19:01] LABS: BASOPHILS ABSOLUTE AUTO 0.07 K/mm3 (0.00-0.23); BASOPHILS PERCENT AUTO 1 % (0-2); EOSINOPHILS ABSOLUTE AUTO 0.17 K/mm3 (0.00-0.68); EOSINOPHILS PERCENT AUTO 1 % (0-6); Hematocrit 34.5 % (33.0-51.0); Hemoglobin 11.1 g/dL (11.5-16.0); IMMATURE GRAN PERCENT AUTO 1 % (0-1); LYMPHOCYTES ABSOLUTE AUTO 2.35 K/mm3 (0.84-5.20); LYMPHOCYTES PERCENT AUTO 16 % (21-46); MONOCYTES ABSOLUTE AUTO 1.46 K/mm3 (0.16-1.47); MONOCYTES PERCENT AUTO 10 % (4-13); Mean Corpuscular HGB 29.4 pg (26.0-34.0); Mean Corpuscular HGB Conc 32.2 g/dL (31.5-36.5); Mean Corpuscular Volume 92 fL (80-100); Mean Platelet Volume 9.9 fL (9.1-12.4); NEUTROPHILS ABSOLUTE AUTO 10.31 K/mm3 (1.96-9.15); NEUTROPHILS PERCENT AUTO 71 % (41-73); Platelet Count 291 K/mm3 (150-400); RDW Standard Deviation 53.1 fL (35.1-46.3); Red Blood Cell Count 3.77 M/mm3 (3.80-5.20); White Blood Cell Count 14.46 K/mm3 (4.00-11.30)
[2022-08-16 20:50] LABS: Source, Urine Clean Catch
[2022-08-16 20:56] LABS: Appearance, Urine Hazy (Clear); Bilirubin, Urine Neg (Neg); Blood, Urine 2+ (Neg); Color, Urine Yellow (P-Yellow); Glucose Qualitative, Urine Neg (Neg); Ketones, Urine Neg (Neg); Leukocyte Esterase, Urine 1+ (Neg); Nitrite, Urine Pos (Neg); Protein, Urine 1+ (Neg); Specific Gravity, Urine 1.015 (1.003-1.022); Urobilinogen, Urine NORM (Normal)
[2022-08-16 21:07] LABS: Bacteria Many /hpf; Mucus Light (0-Heavy); Red Blood Cells, Urine 0-2 /hpf (0-2); Squamous Epithelial Cells Few /hpf (Few)
[2022-08-16] MEDS ORDERED: NITR100CA PO (21:17)
[2022-08-17 00:18] VITALS: BP 105/53
[2022-08-17] MEDS ORDERED: METF500 PO (01:05)
[2022-08-17 04:20] VITALS: BP 119/46
[2022-08-17 04:29] VITALS: BP 119/42
--- NOTE | 2022-08-17 05:39 | NUR ---
SHIFT SUMMARY/ADMIT PATIENT ARRIVED TO FLOOR AT 00:20 FROM ED FOR IV ABX THERAPY FOR UTI AND RECENT FALLS AT HOME. PATIENT STATES FALLING AT HOME A FEW TIMES, HAS HAD NAUSEA AND VOMITTING, WHICH HAS NOW RESOLVED. C/O CHRONIC LUMBAR PAIN, RECEIVED PRN NORCO, TOLERATED WELL. SBA FOR TRANSFERS FROM BED TO BSC. INDEPENDANT WITH BED MOBILITY. A/OX4, NO NEURO CHANGES NOTED. NO ACUTE CHANGES OVERNIGHT. O2 1-2L VIA NC TO MAINTAIN at or >90% WHILE ASLEEP. PATIENT EDUCATED RE IGNITION SOURCES AND RISK OF INJURY WHILE OXYGEN IN USE, VERBALIZED UNDERSTANDING, DENIES SMOKING. PIV TO RIGHT HAND INFUSING NS AT 125mL/HR. BED IN LOW POSITION, CALL LIGHT WITHIN REACH.
[2022-08-17 05:43] LABS: BASOPHILS ABSOLUTE AUTO 0.04 K/mm3 (0.00-0.23); BASOPHILS PERCENT AUTO 0 % (0-2); EOSINOPHILS ABSOLUTE AUTO 0.14 K/mm3 (0.00-0.68); EOSINOPHILS PERCENT AUTO 1 % (0-6); Hematocrit 31.8 % (33.0-51.0); Hemoglobin 11.1 g/dL (11.5-16.0); IMMATURE GRAN ABSOLUTE AUTO 0.11 K/mm3 (0.00-0.10); IMMATURE GRAN PERCENT AUTO 1 % (0-1); LYMPHOCYTES ABSOLUTE AUTO 1.81 K/mm3 (0.84-5.20); LYMPHOCYTES PERCENT AUTO 14 % (21-46); MONOCYTES ABSOLUTE AUTO 1.51 K/mm3 (0.16-1.47); MONOCYTES PERCENT AUTO 12 % (4-13); Mean Corpuscular HGB 32.4 pg (26.0-34.0); Mean Corpuscular HGB Conc 34.9 g/dL (31.5-36.5); Mean Corpuscular Volume 93 fL (80-100); Mean Platelet Volume 9.8 fL (9.1-12.4); NEUTROPHILS ABSOLUTE AUTO 9.47 K/mm3 (1.96-9.15); NEUTROPHILS PERCENT AUTO 73 % (41-73); Platelet Count 301 K/mm3 (150-400); RDW Standard Deviation 54.1 fL (35.1-46.3); Red Blood Cell Count 3.43 M/mm3 (3.80-5.20); White Blood Cell Count 13.08 K/mm3 (4.00-11.30)
[2022-08-17 06:14] LABS: Albumin, Blood 2.7 g/dL (3.4-5.0); Albumin/Globulin Ratio 0.6 (0.8-1.8); Bilirubin, Total 0.7 mg/dL (0.1-1.0); Bun/Creatinine Ratio 16.8 (12.0-20.0); Calcium, Blood 8.6 mg/dL (8.5-10.1); Creatinine, Blood 0.72 mg/dL (0.40-1.00); Globulin, Blood 4.6 g/dL (2.2-4.0); Potassium, Blood 3.8 mmol/L (3.5-5.5); Total Protein, Blood 7.3 g/dL (6.4-8.2)
[2022-08-17 07:56] VITALS: BP 110/56
[2022-08-17] MEDS ORDERED: CEFD300 PO (14:24)
[2022-08-17 15:29] VITALS: BP 104/39
--- NOTE | 2022-08-17 15:32 | NUR ---
PM VS: 104/39, HR 96, TEMP 101.4, <80% ON ROOM AIR (WAS SLEEPING WITH HER MOUTH OPEN). APPLIED O2 VIA NC @ 2L/MIN, O2 SAT IMPROVED TO 94-96% (SHE WAS AWAKE AT THIS TIME). CALLED DR. ALBERTO, HAD TO LEAVE . THIS AUTHOR RECOMMENDED HOLDING D/C. WILL CONTINUE TO MONITOR.
--- NOTE | 2022-08-17 18:16 | NUR ---
SHIFT SUMMARY: TMAX 101.4 THIS AFTERNOON, LOW O2 SAT ON ROOM AIR WHILE SLEEPING. AFTER TYLENOL, TEMP DECREASED TO 99.4 ORAL, KEEPING O2 SAT AROUND 92% ON 1-2 L/MIN NC. DISCHARGE ON HOLD, DR. ALBERTO AWARE. C/O CHRONIC BACK PAIN; MEDICATED PER EMAR WITH INCOMPLETE RELIEF. WORKED WITH PT/OT TODAY. SLEPT MOST OF THE SHIFT. GETTING UP TO BSC WITH 1 PERSON ASSIST, WEAK BLE. NO N/V, POOR APPETITE. WITH LOW O2 SATS WHILE ASLEEP, MAY BENEFIT FROM SLEEP STUDY.
[2022-08-17 19:59] VITALS: BP 95/45
[2022-08-18 02:43] VITALS: BP 112/57
[2022-08-18 05:04] LABS: BASOPHILS ABSOLUTE AUTO 0.04 K/mm3 (0.00-0.23); BASOPHILS PERCENT AUTO 0 % (0-2); EOSINOPHILS ABSOLUTE AUTO 0.25 K/mm3 (0.00-0.68); EOSINOPHILS PERCENT AUTO 3 % (0-6); Hematocrit 28.3 % (33.0-51.0); Hemoglobin 10.5 g/dL (11.5-16.0); IMMATURE GRAN ABSOLUTE AUTO 0.09 K/mm3 (0.00-0.10); IMMATURE GRAN PERCENT AUTO 1 % (0-1); LYMPHOCYTES ABSOLUTE AUTO 1.33 K/mm3 (0.84-5.20); LYMPHOCYTES PERCENT AUTO 14 % (21-46); MONOCYTES ABSOLUTE AUTO 1.12 K/mm3 (0.16-1.47); MONOCYTES PERCENT AUTO 12 % (4-13); Mean Corpuscular HGB 33.8 pg (26.0-34.0); Mean Corpuscular HGB Conc 37.1 g/dL (31.5-36.5); Mean Corpuscular Volume 91 fL (80-100); Mean Platelet Volume 9.5 fL (9.1-12.4); NEUTROPHILS ABSOLUTE AUTO 6.39 K/mm3 (1.96-9.15); NEUTROPHILS PERCENT AUTO 69 % (41-73); Platelet Count 259 K/mm3 (150-400); RDW Coefficient Variation 15.8 % (11.7-14.2); RDW Standard Deviation 51.7 fL (35.1-46.3); Red Blood Cell Count 3.11 M/mm3 (3.80-5.20); White Blood Cell Count 9.22 K/mm3 (4.00-11.30)
[2022-08-18 06:03] LABS: Albumin, Blood 2.5 g/dL (3.4-5.0); Albumin/Globulin Ratio 0.6 (0.8-1.8); Bilirubin, Total 0.3 mg/dL (0.1-1.0); Bun/Creatinine Ratio 18.8 (12.0-20.0); Calcium, Blood 8.4 mg/dL (8.5-10.1); Creatinine, Blood 0.91 mg/dL (0.40-1.00); Potassium, Blood 3.7 mmol/L (3.5-5.5); Total Protein, Blood 6.5 g/dL (6.4-8.2)
[2022-08-18 07:55] VITALS: BP 111/38
--- NOTE | 2022-08-18 11:24 | NUR ---
Pt. is awake in bed whn she welcomes my visi. Pt. is unsetled by concerns about getting her prescriptions filled when she discharges as her pharmacy no longer delivers to her home. Listen with empathy and a calming presence. Facilitate a short lif review. Pt. verbalizes that she hasn't been able to go to [facility] because of her mobility issues. Continue to listen wih empathy and interest. Prayed with Pt. and ousmane remain available to her.
--- NOTE | 2022-08-18 14:55 | NUR ---
DISCHARGE SUMMARY: PT DISCHARGED HOME TODAY. PT EDUCATED ON DISCHARGE INSTRUCTIONS AND MEDICATIONS. PT VU. FAXED MED LIST TO [facility] PER HER REQUEST. ASSISTED WITH PACKING BELONGINGS. PT ESCORTED TO POV VIA WC BY [facility].
== END 2022-08-18 14:50 | disposition home or self-care (01) | DRG 690 ==
LOC: ER 17:43 → MEDS 23:34
PROVIDERS: Emergency Medicine; Family Medicine; ADMIT Internal Medicine
DX: N39.0 Urinary tract infection, site not specified (principal); R29.6 Repeated falls; J44.9 Chronic obstructive pulmonary disease, unspecified; E11.51 Type 2 diabetes mellitus with diabetic peripheral angiopathy without gangrene; E03.9 Hypothyroidism, unspecified; K21.9 Gastro-esophageal reflux disease without esophagitis; K76.0 Fatty (change of) liver, not elsewhere classified; B96.20 Unspecified Escherichia coli [E. coli] as the cause of diseases classified elsewhere; I10 Essential (primary) hypertension; E05.00 Thyrotoxicosis with diffuse goiter without thyrotoxic crisis or storm; W18.30XA Fall on same level, unspecified, initial encounter; G47.30 Sleep apnea, unspecified; Z98.890 Other specified postprocedural states; Z90.710 Acquired absence of both cervix and uterus; Z96.651 Presence of right artificial knee joint; Z88.0 Allergy status to penicillin; Z79.51 Long term (current) use of inhaled steroids; Z79.811 Long term (current) use of aromatase inhibitors; Z79.891 Long term (current) use of opiate analgesic; Z79.899 Other long term (current) drug therapy; Z91.048 Other nonmedicinal substance allergy status; Z90.89 Acquired absence of other organs; Z86.19 Personal history of other infectious and parasitic diseases
CPT/HCPCS: 36415; 70450; 73502; 80053; 81001; 83690; 85025; 87077; 87086; 87186; 93005; 93010; 94640; 94664; 94760; 96365; 97116; 97162; 97166; 97530; 97535; 99285-25; A9270; J0696; J1650; J7030

== ENCOUNTER → 2022-11-24 | Outpatient (CLI) | payer OTHER ==
[~2022-11-24] MED LIST changes: +BREO ELLIPTA 11 EAC1; +NITR100CA PO; +OMEP20ER
== END ==
LOC: LAB SHORT 16:55 → LAB 16:55
DX: R30.0 Dysuria (principal)
CPT/HCPCS: 87077; 87086; 87186

== ENCOUNTER → 2023-02-24 | Outpatient (CLI) | payer OTHER | LOC: LAB SHORT 17:32 → LAB 17:32 | DX: R30.0 Dysuria (principal) | CPT/HCPCS: 87077; 87086; 87186 ==

== ENCOUNTER → 2023-12-08 | Outpatient (CLI) | payer OTHER | LOC: LAB SHORT 10:00 → LAB 10:00 | DX: R68.89 Other general symptoms and signs (principal) | CPT/HCPCS: 87077; 87086; 87186 ==

== ENCOUNTER → 2024-01-18 | Outpatient (CLI) | payer OTHER | END | disposition home or self-care (01) | LOC: LAB 17:54 → LAB SHORT 17:54 | DX: R30.0 Dysuria (principal); F22 Delusional disorders | CPT/HCPCS: 87086 ==

== ENCOUNTER 2024-02-01 14:39 | Inpatient (IN) | payer OTHER ==
[~2024-02-01] VITALS: Ht 177.8 cm; Wt 118.3 kg
[~2024-02-01 14:39] MED LIST changes: -BREO ELLIPTA 11 EAC1; +BREO ELLIPTA 21 EAC1 INH; +LISI5 PO; +METHIMAZOLE5 M1 PO; -OMEP20ER; +OMEP20ER PO; -Prinivil10 MG PO
[2024-02-01 15:51] LABS: BASOPHILS ABSOLUTE AUTO 0.08 K/mm3 (0.00-0.23); BASOPHILS PERCENT AUTO 0 % (0-2); EOSINOPHILS ABSOLUTE AUTO 0.44 K/mm3 (0.00-0.68); EOSINOPHILS PERCENT AUTO 2 % (0-6); Hematocrit 42.9 % (33.0-51.0); Hemoglobin 14.2 g/dL (11.5-16.0); IMMATURE GRAN PERCENT AUTO 1 % (0-1); LYMPHOCYTES ABSOLUTE AUTO 1.45 K/mm3 (0.84-5.20); LYMPHOCYTES PERCENT AUTO 8 % (21-46); MONOCYTES ABSOLUTE AUTO 1.37 K/mm3 (0.16-1.47); MONOCYTES PERCENT AUTO 7 % (4-13); Mean Corpuscular HGB Conc 33.1 g/dL (31.5-36.5); Mean Corpuscular Volume 91 fL (80-100); Mean Platelet Volume 9.1 fL (9.1-12.4); NEUTROPHILS ABSOLUTE AUTO 14.97 K/mm3 (1.96-9.15); NEUTROPHILS PERCENT AUTO 81 % (41-73); Platelet Count 301 K/mm3 (150-400); RDW Coefficient Variation 14.3 % (11.7-14.2); RDW Standard Deviation 48.2 fL (35.1-46.3); Red Blood Cell Count 4.73 M/mm3 (3.80-5.20); White Blood Cell Count 18.41 K/mm3 (4.00-11.30)
[2024-02-01 16:16] LABS: Albumin, Blood 2.9 g/dL (3.4-5.0); Albumin/Globulin Ratio 0.6 (0.8-1.8); Bilirubin, Total 0.8 mg/dL (0.1-1.0); Bun/Creatinine Ratio 16.9 (12.0-20.0); Calcium, Blood 9.4 mg/dL (8.5-10.1); Creatinine, Blood 0.53 mg/dL (0.40-1.00); Globulin, Blood 4.9 g/dL (2.2-4.0); Potassium, Blood 4.3 mmol/L (3.5-5.5); Total Protein, Blood 7.8 g/dL (6.4-8.2)
[2024-02-01] MEDS ORDERED: Ipratropium/Albuterol SulF 2.5-0.5MG/3 ML Amp INH ONE (18:10)
[2024-02-01 20:08] LABS: Influenza A, PCR NEGATIVE (NEGATIVE); Influenza B, PCR NEGATIVE (NEGATIVE); Resp Syncytial Virus, PCR NEGATIVE (NEGATIVE); SARS-Cov-2 (COVID-19) PCR, MMC NEGATIVE (NEGATIVE)
[2024-02-01 20:24] LABS: International Normalized Ratio 1.13
[2024-02-01] MEDS ORDERED: MethylPREDNISolone Sod Succ 125 MG Vial IV ONE (21:20)
[2024-02-01] MEDS ORDERED: Albuterol 2.5 MG/3 ML VIAL INH ONE (21:25)
[2024-02-01] MEDS ORDERED: Ondansetron HCl 2 MG / ML 2ML Vial IV PRN (22:25)
[2024-02-01] MEDS ORDERED: FLU VACC TS2024-25(6MOS UP)/PF 45 MCG/0.5 ML SYRINGE IM ONE (22:25)
[2024-02-01] MEDS ORDERED: Ipratropium/Albuterol SulF 2.5-0.5MG/3 ML Amp INH PRN (22:25)
[2024-02-01] MEDS ORDERED: Enoxaparin 40 MG/0.4 ML SYR SC SCH (23:00)
[2024-02-01] MEDS ORDERED: Azithromycin 500 MG in NS 250 ML IV SCH (23:18)
[2024-02-01] MEDS ORDERED: NS 250 ML IV PRN (23:40)
[2024-02-01 23:44] VITALS: BP 122/79
[2024-02-01] MEDS ORDERED: MONT10T PO (23:57)
[2024-02-01] MEDS ORDERED: GLIP5 PO (23:58)
[2024-02-01] MEDS ORDERED: FOSAMAX70 MG PO (23:58)
[2024-02-02] MEDS ORDERED: MethylPREDNISolone Sod Succ 125 MG Vial IV SCH
[2024-02-02] MEDS ORDERED: METHENAMINE HIPPURAT PO (00:01)
[2024-02-02] MEDS ORDERED: ALBU2.5V5 NEB (00:03)
[2024-02-02] MEDS ORDERED: TIOT18 INH (00:03)
[2024-02-02] MEDS ORDERED: ALBU3IS INH (00:04)
[2024-02-02] MEDS ORDERED: Albuterol 2.5 MG/3 ML VIAL INH PRN ×2 (00:25→06:45)
[2024-02-02] MEDS ORDERED: Albuterol HFA200 ACT/6.7 GM INH INH PRN (00:25)
[2024-02-02] MEDS ORDERED: Acetaminophen 325 MG TABLET PO PRN (00:55)
[2024-02-02] MEDS ORDERED: Magnesium Sulf 2 GM/Water 50ML 50 ML IV ONE (02:00)
[2024-02-02 04:32] VITALS: BP 131/66
--- NOTE | 2024-02-02 05:36 | NUR ---
SHIFT SUMMARY NOC PT A/O X 3. VERY TETLIN, AND DOES NOT HAVE BILATERAL HEARING AIDES WITH THEM. PT CAN BE IMPULSIVE AND FORGETFUL OF LIMITATIONS AND HAS BED ALARM ON FOR SAFETY. PT IS PRETTY WEAK AND UNSTEADY ON FEET. PT IS ABLE TO STAND PIVOT TO BSC WITH 2PA. PT ON O2 2L/NC SPO2 >92%, BUT IS ON RA BASELINE. PT HAD GLF IN ED WAITING ROOM AND HAS CUT ON BACK OF R SIDE OF SCALP (PICS IN CHART). ON TELE SINUS RHYTHM IN 80'S, AND ALSO HAS ECHO SCHEDULED FOR TODAY. PT MG 1.2 AND GIVEN 2G MAG SULFATE FOR REPLACEMENT. PT STARTED ON IV ABX FOR ELEVATED WBC. MED RECONCILIATION COMPLETED. PT CURRENTLY RESTING WITH BED ALARM ON, BED IN LOWEST POSITION, AND CALL LIGHT WITHIN REACH.
[2024-02-02] MEDS ORDERED: Mometasone/Formoterol MDI 200/5 mcg 13 GM INH SCH (06:45)
[2024-02-02] MEDS ORDERED: Tiotropium Bromide 2.5 MCG/ACT MIST INHAL (10 ACT/4 GM) INH SCH (06:45)
[2024-02-02 07:25] VITALS: BP 142/73
[2024-02-02] MEDS ORDERED: Insulin Human Lispro 100 Units/ML 3ML Syringe SC SCH (07:30)
[2024-02-02 07:38] LABS: BASOPHILS ABSOLUTE AUTO 0.02 K/mm3 (0.00-0.23); BASOPHILS PERCENT AUTO 0 % (0-2); EOSINOPHILS PERCENT AUTO 0 % (0-6); Hematocrit 41.4 % (33.0-51.0); Hemoglobin 13.7 g/dL (11.5-16.0); IMMATURE GRAN ABSOLUTE AUTO 0.15 K/mm3 (0.00-0.10); IMMATURE GRAN PERCENT AUTO 1 % (0-1); LYMPHOCYTES ABSOLUTE AUTO 0.77 K/mm3 (0.84-5.20); LYMPHOCYTES PERCENT AUTO 5 % (21-46); MONOCYTES PERCENT AUTO 1 % (4-13); Mean Corpuscular HGB 29.5 pg (26.0-34.0); Mean Corpuscular HGB Conc 33.1 g/dL (31.5-36.5); Mean Corpuscular Volume 89 fL (80-100); Mean Platelet Volume 9.5 fL (9.1-12.4); NEUTROPHILS ABSOLUTE AUTO 15.12 K/mm3 (1.96-9.15); NEUTROPHILS PERCENT AUTO 94 % (41-73); Platelet Count 288 K/mm3 (150-400); RDW Coefficient Variation 14.1 % (11.7-14.2); RDW Standard Deviation 45.5 fL (35.1-46.3); Red Blood Cell Count 4.65 M/mm3 (3.80-5.20); White Blood Cell Count 16.16 K/mm3 (4.00-11.30)
[2024-02-02] MEDS ORDERED: Magnesium Sulf 2 GM/Water 50ML 50 ML IV STA (07:44)
[2024-02-02 08:04] LABS: Albumin, Blood 2.6 g/dL (3.4-5.0); Albumin/Globulin Ratio 0.5 (0.8-1.8); Bilirubin, Total 0.5 mg/dL (0.1-1.0); Bun/Creatinine Ratio 19.4 (12.0-20.0); Calcium, Blood 9.3 mg/dL (8.5-10.1); Creatinine, Blood 0.57 mg/dL (0.40-1.00); Globulin, Blood 4.8 g/dL (2.2-4.0); Magnesium, Blood 2.3 mg/dL (1.6-2.4); Potassium, Blood 4.1 mmol/L (3.5-5.5); Total Protein, Blood 7.4 g/dL (6.4-8.2)
[2024-02-02] MEDS ORDERED: Furosemide 10 MG/ML 4ML Vial IV SCH (09:00)
[2024-02-02] MEDS ORDERED: Methenamine 1 GM TAB PO SCH (09:00)
[2024-02-02] MEDS ORDERED: Miconazole Nitrate 2% 85 GM PWD TOP SCH (09:00)
[2024-02-02] MEDS ORDERED: Pantoprazole Sodium 40 MG Tab PO SCH (09:00)
[2024-02-02] MEDS ORDERED: Lisinopril 5 MG Tab PO SCH (09:00)
[2024-02-02] MEDS ORDERED: Montelukast Sodium 10 MG Tab PO SCH (09:00)
[2024-02-02] MEDS ORDERED: methIMAzole 5 MG TABLET PO SCH (09:00)
[2024-02-02 10:20] LABS: Base Excess Venous 1.8 mmol/L; Bicarbonate Venous 25.7 mmol/L (24.0-30.0); PCO2 Venous 42.6 mmHg (38-42)
--- NOTE | 2024-02-02 11:44 | NUR ---
TELE NOTIFIED THIS RN OF CHANGE IN HR AND RHTHYM, PT SINUS THIS MORNING WITH 0-5 PVC/MIN FROM 6-8, JUMPED TO 32 PVC/MIN, PT NOW IN BIGEMINY WITH BUNDLE. DR. ALBERTO NOTIFIED, AT BEDSIDE NOW
[2024-02-02 15:08] VITALS: BP 147/54
[2024-02-02] MEDS ORDERED: IBUP400 PO (17:28)
--- NOTE | 2024-02-02 19:15 | NUR ---
PT IS MUCH MORE ALERT AND ORIENTED THIS AFTERNOON. PT ORIENTED X4, ABLE TO MAKE NEEDS KNOWN, CALLS APPROPRIATELY, WEAK, UNSTEADY GAIT, 1 PERSON ASSIST TO BEDSIDE COMMODE. PT INDEPENDENT AT BASELINE, FORGETFUL AT TIMES. 3L NC ATTEMPTED TO WEAN O2, PT REQUIRED INCREASED O2 WITH STAND PIVOT TO BSC. CBG TREATED PER EMAR. ECHO COMPLETED THIS SHIFT.
[2024-02-02 21:32] VITALS: BP 118/58
--- NOTE | 2024-02-03 05:03 | NUR ---
MEDICAL EXAMINER SUMMARY VSS. LUNG SOUNDS DIMINISHED PER AUSCULTATION. O2 PER NC AT 3L/MIN. MED TELE BBB. ASYMPTOMATIC. UP WITH ASSIST TO BEDSIDE COMMODE. SOME UNSTEADINESS. COOPERATIVE WITH CARE. IV ANTIBIOTICS INFUSING PER MD ORDERS - SE MAR FOR DETAILS. HAS BEEN RESTING QUIETLY WITH OCCASIONAL INTERRUPTION. HOB ELEVATED FOR RESP COMFORT. ABLE TO REPOSITION SELF IN BED WITHOUT ASSIST. CALL LIGHT IN REACH. RAILS UP X 2 AND BED IN LOW POSITION FOR SAFETY. AWAITING SPUTUM SPECIMEN. NO NOTED BLEEDIN G TOMIGHT FROM HEAD WOUND. WILL CONT TO MONITOR
[2024-02-03 05:11] VITALS: BP 118/81
[2024-02-03 05:55] LABS: BASOPHILS ABSOLUTE AUTO 0.03 K/mm3 (0.00-0.23); BASOPHILS PERCENT AUTO 0 % (0-2); EOSINOPHILS PERCENT AUTO 0 % (0-6); Hematocrit 39.6 % (33.0-51.0); Hemoglobin 13.1 g/dL (11.5-16.0); IMMATURE GRAN ABSOLUTE AUTO 0.17 K/mm3 (0.00-0.10); IMMATURE GRAN PERCENT AUTO 1 % (0-1); LYMPHOCYTES ABSOLUTE AUTO 0.99 K/mm3 (0.84-5.20); LYMPHOCYTES PERCENT AUTO 5 % (21-46); MONOCYTES ABSOLUTE AUTO 0.51 K/mm3 (0.16-1.47); MONOCYTES PERCENT AUTO 3 % (4-13); Mean Corpuscular HGB 29.5 pg (26.0-34.0); Mean Corpuscular HGB Conc 33.1 g/dL (31.5-36.5); Mean Corpuscular Volume 89 fL (80-100); Mean Platelet Volume 9.8 fL (9.1-12.4); NEUTROPHILS ABSOLUTE AUTO 17.76 K/mm3 (1.96-9.15); NEUTROPHILS PERCENT AUTO 91 % (41-73); Platelet Count 319 K/mm3 (150-400); RDW Coefficient Variation 14.1 % (11.7-14.2); Red Blood Cell Count 4.44 M/mm3 (3.80-5.20); White Blood Cell Count 19.46 K/mm3 (4.00-11.30)
[2024-02-03 06:28] LABS: Albumin, Blood 2.3 g/dL (3.4-5.0); Albumin/Globulin Ratio 0.5 (0.8-1.8); Bilirubin, Total 0.4 mg/dL (0.1-1.0); Calcium, Blood 8.8 mg/dL (8.5-10.1); Creatinine, Blood 0.67 mg/dL (0.40-1.00); Globulin, Blood 4.6 g/dL (2.2-4.0); Potassium, Blood 3.6 mmol/L (3.5-5.5); Total Protein, Blood 6.9 g/dL (6.4-8.2)
[2024-02-03 07:25] VITALS: BP 116/94
[2024-02-03] MEDS ORDERED: LASIX40 MG PO (14:29)
[2024-02-03] MEDS ORDERED: PRED20 PO (14:30)
[2024-02-03] MEDS ORDERED: K-Dur20 MEQ PO (14:30)
== END 2024-02-03 15:15 | disposition home or self-care (01) | DRG 189 ==
LOC: ER 14:39 → MEDS 14:40
PROVIDERS: Emergency Medicine; Family Medicine; Student in an Organized Health Care Education/Training Program; ADMIT Internal Medicine
DX: J96.01 Acute respiratory failure with hypoxia (principal); G93.41 Metabolic encephalopathy; J44.1 Chronic obstructive pulmonary disease with (acute) exacerbation; E87.1 Hypo-osmolality and hyponatremia; D72.829 Elevated white blood cell count, unspecified; T38.0X5A Adverse effect of glucocorticoids and synthetic analogues, initial encounter; I11.0 Hypertensive heart disease with heart failure; I50.9 Heart failure, unspecified; E11.65 Type 2 diabetes mellitus with hyperglycemia; E05.00 Thyrotoxicosis with diffuse goiter without thyrotoxic crisis or storm; S01.01XA Laceration without foreign body of scalp, initial encounter; W18.39XA Other fall on same level, initial encounter; K21.9 Gastro-esophageal reflux disease without esophagitis; E11.51 Type 2 diabetes mellitus with diabetic peripheral angiopathy without gangrene; G47.30 Sleep apnea, unspecified; Z79.51 Long term (current) use of inhaled steroids; Z88.0 Allergy status to penicillin; Z86.14 Personal history of Methicillin resistant Staphylococcus aureus infection; Z79.84 Long term (current) use of oral hypoglycemic drugs
CPT/HCPCS: 0241U; 36415; 70450; 71045; 72125; 80053; 82803; 82947; 83735; 83880; 84484; 85025; 85610; 85730; 93005; 93010; 93306; 94640; 94664; 94760; 94762; 96372; 96374; 96375; 96376; 99285-25; A9270; G0378; J0456; J1650; J1940; J2919; J3475; J7050

== ENCOUNTER 2024-05-04 13:47 | Emergency (ER) | payer OTHER ==
[~2024-05-04] VITALS: Ht 175.3 cm; Wt 120.2 kg
[~2024-05-04 13:47] MED LIST changes: +ALBU2.5V5 NEB; +ALBU3IS INH; +FOSAMAX70 MG PO; +GLIP5 PO; +IBUP400 PO; +K-Dur20 MEQ PO; +LASIX40 MG PO; +METHENAMINE HIPPURAT PO
[2024-05-04] MEDS ORDERED: Diphth,Pertuss(Acell),Tet Vac 0.5 ML VIAL IM ONE (15:05)
[2024-05-04] MEDS ORDERED: Acetaminophen 500 MG Tab PO ONE (15:05)
[2024-05-04 16:07] LABS: BASOPHILS ABSOLUTE AUTO 0.08 K/mm3 (0.00-0.23); BASOPHILS PERCENT AUTO 1 % (0-2); EOSINOPHILS ABSOLUTE AUTO 0.49 K/mm3 (0.00-0.68); EOSINOPHILS PERCENT AUTO 4 % (0-6); Hematocrit 43.8 % (33.0-51.0); Hemoglobin 14.3 g/dL (11.5-16.0); IMMATURE GRAN ABSOLUTE AUTO 0.07 K/mm3 (0.00-0.10); IMMATURE GRAN PERCENT AUTO 1 % (0-1); LYMPHOCYTES ABSOLUTE AUTO 1.35 K/mm3 (0.84-5.20); LYMPHOCYTES PERCENT AUTO 11 % (21-46); MONOCYTES ABSOLUTE AUTO 0.91 K/mm3 (0.16-1.47); MONOCYTES PERCENT AUTO 8 % (4-13); Mean Corpuscular HGB 30.2 pg (26.0-34.0); Mean Corpuscular HGB Conc 32.6 g/dL (31.5-36.5); Mean Corpuscular Volume 93 fL (80-100); Mean Platelet Volume 9.3 fL (9.1-12.4); NEUTROPHILS PERCENT AUTO 75 % (41-73); Platelet Count 231 K/mm3 (150-400); RDW Coefficient Variation 13.5 % (11.7-14.2); RDW Standard Deviation 46.4 fL (35.1-46.3); Red Blood Cell Count 4.73 M/mm3 (3.80-5.20)
[2024-05-04 16:17] VITALS: BP 123/97
[2024-05-04] MEDS ORDERED: Ibuprofen 600 MG Tab PO ONE (16:40)
[2024-05-04 16:53] LABS: Source, Urine Clean Catch
[2024-05-04 16:57] LABS: Bilirubin, Urine Neg (Neg); Blood, Urine 3+ (Neg); Color, Urine Yellow (P-Yellow); Glucose Qualitative, Urine Neg (Neg); Ketones, Urine Neg (Neg); Leukocyte Esterase, Urine 1+ (Neg); Nitrite, Urine Pos (Neg); Protein, Urine Neg (Neg); Urobilinogen, Urine NORM (Normal); pH, Urine 6.5 (5.0-8.0)
[2024-05-04 17:07] LABS: Free Thyroxine 1.25 ng/dL (0.70-1.60); Magnesium, Blood 1.6 mg/dL (1.6-2.4)
[2024-05-04 17:24] LABS: Bun/Creatinine Ratio 28.5 (12.0-20.0); Calcium, Blood 9.2 mg/dL (8.5-10.1); Creatinine, Blood 0.7 mg/dL (0.40-1.00); Potassium, Blood 4.3 mmol/L (3.5-5.5); Thyroid Stimulating Hormone 2.46 uIU/mL (0.360-4.800)
[2024-05-04] MEDS ORDERED: ACET500 PO (17:34)
[2024-05-04 17:38] LABS: Appearance, Urine Hazy (Clear)
[2024-05-04 17:39] LABS: Red Blood Cells, Urine 0-2 /hpf (0-2); White Blood Cells, Urine 0-2 /hpf (0-5)
[2024-05-04 17:40] LABS: Bacteria Many /hpf; Squamous Epithelial Cells Few /hpf (Few)
== END 2024-05-04 17:49 | disposition home or self-care (01) ==
LOC: ER 13:47
PROVIDERS: Emergency Medicine
DX: S01.01XA Laceration without foreign body of scalp, initial encounter (principal); J44.89 Other specified chronic obstructive pulmonary disease; E11.9 Type 2 diabetes mellitus without complications; E03.9 Hypothyroidism, unspecified; K21.9 Gastro-esophageal reflux disease without esophagitis; G47.33 Obstructive sleep apnea (adult) (pediatric); W01.0XXA Fall on same level from slipping, tripping and stumbling without subsequent striking against object, initial encounter; Z79.52 Long term (current) use of systemic steroids; Z79.51 Long term (current) use of inhaled steroids; Z79.899 Other long term (current) drug therapy; Z88.0 Allergy status to penicillin; Z91.048 Other nonmedicinal substance allergy status
CPT/HCPCS: 12002; 70450; 71045; 80048; 81001; 82607; 83735; 84439; 84443; 85025; 90471; 90715; 93005; 93010; 99284-25; A9270

== ENCOUNTER 2024-05-16 10:49 | Emergency (ER) | payer OTHER ==
[~2024-05-16] VITALS: Ht 177.8 cm; Wt 111.6 kg
[~2024-05-16 10:49] MED LIST changes: +ACET500 PO
[2024-05-16 11:24] VITALS: BP 130/94
[2024-05-16] MEDS ORDERED: Lidocaine/Tetracaine/Epinephr 3 ML GEL SYRINGE TOP ONE (11:35)
== END 2024-05-16 12:43 | disposition home or self-care (01) ==
LOC: ER 10:49
DX: S01.01XD Laceration without foreign body of scalp, subsequent encounter (principal); Z48.02 Encounter for removal of sutures; W22.8XXD Striking against or struck by other objects, subsequent encounter; J44.89 Other specified chronic obstructive pulmonary disease; E11.9 Type 2 diabetes mellitus without complications; Z79.52 Long term (current) use of systemic steroids; Z79.899 Other long term (current) drug therapy; Z79.51 Long term (current) use of inhaled steroids; Z88.0 Allergy status to penicillin; Z91.048 Other nonmedicinal substance allergy status
CPT/HCPCS: 99281

== ENCOUNTER 2024-11-13 07:31 | Emergency (ER) | payer OTHER ==
[~2024-11-13] VITALS: Ht 175.3 cm; Wt 118.8 kg
[2024-11-13 09:15] LABS: BASOPHILS ABSOLUTE AUTO 0.02 K/mm3 (0.00-0.23); BASOPHILS PERCENT AUTO 0 % (0-2); EOSINOPHILS ABSOLUTE AUTO 0.00 K/mm3 (0.00-0.68); EOSINOPHILS PERCENT AUTO 0 % (0-6); Hematocrit 40.0 % (33.0-51.0); Hemoglobin 13.2 g/dL (11.5-16.0); IMMATURE GRAN ABSOLUTE AUTO 0.04 K/mm3 (0.00-0.10); IMMATURE GRAN PERCENT AUTO 1 % (0-1); LYMPHOCYTES ABSOLUTE AUTO 0.82 K/mm3 (0.84-5.20); LYMPHOCYTES PERCENT AUTO 11 % (21-46); MONOCYTES ABSOLUTE AUTO 1.23 K/mm3 (0.16-1.47); MONOCYTES PERCENT AUTO 17 % (4-13); Mean Corpuscular HGB Conc 33.0 g/dL (31.5-36.5); Mean Corpuscular Volume 90 fL (80-100); NEUTROPHILS ABSOLUTE AUTO 5.14 K/mm3 (1.96-9.15); NEUTROPHILS PERCENT AUTO 71 % (41-73); NRBC ABSOLUTE 0.00 K/mm3 (0.00-0.02); NRBC Auto 0.0 /100 WBC (0.0-0.2); Platelet Count 174 K/mm3 (150-400); RDW Coefficient Variation 14.0 % (11.7-14.2); RDW Standard Deviation 46.7 fL (35.1-46.3)
[2024-11-13 09:33] LABS: Alanine Aminotransfer (ALT/SGP 33.0 U/L (12-78); Albumin, Blood 2.9 g/dL (3.4-5.0); Albumin/Globulin Ratio 0.7 (0.8-1.8); Anion Gap 6.0 mmol/L (3-11); Aspartate Aminotrans (AST/SGOT 25.0 U/L (12-37); Bilirubin, Total 0.5 mg/dL (0.1-1.0); Blood Urea Nitrogen 16.0 mg/dL (8-24); CO2, Blood 29.0 mmol/L (21-32); Calcium, Blood 8.5 mg/dL (8.5-10.1); Chloride, Blood 108.0 mmol/L (98-108); Creatinine, Blood 0.66 mg/dL (0.40-1.00); Globulin, Blood 3.9 g/dL (2.2-4.0); Glucose, Blood 167.0 mg/dL (70-99); Potassium, Blood 4.1 mmol/L (3.5-5.5); Sodium, Blood 139.0 mmol/L (136-145); Total Protein, Blood 6.8 g/dL (6.4-8.2)
[2024-11-13 10:15] LABS: Source, Urine Clean Catch
[2024-11-13 10:18] LABS: Bilirubin, Urine Neg (Neg); Color, Urine Yellow (P-Yellow); Glucose Qualitative, Urine Neg (Neg); Ketones, Urine Neg (Neg); Leukocyte Esterase, Urine 1+ (Neg); Protein, Urine 2+ (Neg); Specific Gravity, Urine 1.015 (1.003-1.022); Urobilinogen, Urine NORM (Normal)
[2024-11-13 10:41] LABS: Red Blood Cells, Urine 0-2 /hpf (0-2)
[2024-11-13 11:01] VITALS: BP 135/67
[2024-11-13] MEDS ORDERED: NS 1,000 ML IV SCH (11:15)
== END 2024-11-13 12:14 | disposition home or self-care (01) ==
LOC: ER 07:31
PROVIDERS: Physician Assistant
DX: R53.1 Weakness (principal); J44.89 Other specified chronic obstructive pulmonary disease; E11.51 Type 2 diabetes mellitus with diabetic peripheral angiopathy without gangrene; E03.9 Hypothyroidism, unspecified; K21.9 Gastro-esophageal reflux disease without esophagitis; G47.33 Obstructive sleep apnea (adult) (pediatric); Z79.899 Other long term (current) drug therapy; Z79.52 Long term (current) use of systemic steroids; Z79.51 Long term (current) use of inhaled steroids; Z88.0 Allergy status to penicillin; Z88.8 Allergy status to other drugs, medicaments and biological substances; Z91.048 Other nonmedicinal substance allergy status
CPT/HCPCS: 70450; 73030; 80053; 81001; 85025; 87077; 87086; 87186; 93005; 93010; 96360; 99285-25; J7030